=== PATIENT | male | born 1955 | race Caucasian/White ===

== ENCOUNTER 2022-11-12 06:43 | Day surgery (SDC) | payer MEDICARE ==
[~2022-11-12] VITALS: Ht 172.7 cm; Wt 83.0 kg
[~2022-11-12 06:43] MED LIST: ASPIRIN 32325 MG/TAB PO; PERCOCET 325 MG1 TA2 PO
[2022-11-12 07:06] VITALS: BP 150/85; PULSE 60; TEMP 96.4
[2022-11-12 08:15] VITALS: BP 136/84; PULSE 70; TEMP 96.4
--- NOTE | 2022-11-12 08:15 | NUR ---
0815 PATIENT RETURNS TO ROOM 2 VIA CART. PATIENT IS ALERT AND ORIENTED. PATIENT AMBULATES BACK TO RECLINER IN ROOM WITH THE ASSISTANCE OF 2 NURSE. RESPIRATIONS EVEN AND UNLABORED. VITAL SIGNS OBTAINED. PATIENT DOES NOT WANT ANYTHING TO EAT OR DRINK AT THIS TIME. DOCTOR IN TO SPEAK WITH PATIENT. 0830 DISCONTINUED IV FROM RIGHT HAND WITH NO DIFFICULTIES. 0840 PATIENT DRESSES SELF. 0900 DISCHARGE INSTRUCTIONS PROVIDED TO PATIENT. PATIENT VERBALIZED UNDERSTANDING. NO FURTHER QUESTIONS OR CONCERNS.
[2022-11-12 08:30] VITALS: BP 134/78; PULSE 72
[2022-11-12 08:45] VITALS: BP 136/80; PULSE 68
--- NOTE | 2022-11-12 09:05 | NUR ---
0905 PATIENT DISCHARGES FROM UNIT. PATIENT WANTED TO WALK WITH FRIEND. THIS NURSE WALKED PATIENT OFF UNIT. GAIT IS STEADY AND PATIENT IS ALERT AND ORIENTED.
== END 2022-11-12 09:05 | disposition home or self-care (01) ==
LOC: SDCO 06:43
DX: Z12.11 Encounter for screening for malignant neoplasm of colon (principal); K57.30 Diverticulosis of large intestine without perforation or abscess without bleeding; Z86.010 Personal history of colon polyps; Z80.0 Family history of malignant neoplasm of digestive organs
CPT/HCPCS: J2704; J7120